=== PATIENT | male | born 1960 ===

== ENCOUNTER 2019-01-19 09:54 | Emergency (ER) | payer MEDICAID ==
[~2019-01-19] VITALS: Ht 162.6 cm; Wt 75.0 kg
[2019-01-19] MEDS ORDERED: FLUORESCEIN SODIUM 1MG/STRIP RIGHTEYE ONE (11:30)
[2019-01-19] MEDS ORDERED: TETRACAINE 0.5% OPHTH DROPS 4ML RIGHTEYE ONE (11:30)
[2019-01-19 11:48] VITALS: BP 132/68
== END 2019-01-19 11:49 | disposition home or self-care (01) ==
LOC: ER 10:31
DX: H11.001 Unspecified pterygium of right eye (principal); F17.210 Nicotine dependence, cigarettes, uncomplicated
CPT/HCPCS: 99283; 99406